=== PATIENT | female | born 1990 | race Hispanic/Latino ===

== ENCOUNTER 2017-06-05 02:54 | Emergency (ER) | payer BC ==
[2017-06-05] MEDS ORDERED: DEXAMETHASONE SOD PHOSPHATE 10MG/ML 1ML VIAL ONE (03:15)
[2017-06-05 03:38] LABS: RAPID GROUP A STREP NEGATIVE (NEGATIVE)
[2017-06-05] MEDS ORDERED: IBUPROFEN 800 MG TAB ONE (04:05)
== END 2017-06-05 04:21 | disposition home or self-care (01) ==
LOC: EDH 02:54
DX: B34.9 Viral infection, unspecified (principal); Z72.0 Tobacco use
CPT/HCPCS: 81025; 87804 ×2; 87880; 96372; 99284; J1100

== ENCOUNTER 2017-08-12 22:13 | Emergency (ER) | payer BC | END 2017-08-12 23:42 | disposition home or self-care (01) | LOC: EDH 22:13 | DX: J06.9 Acute upper respiratory infection, unspecified (principal); Z72.0 Tobacco use | CPT/HCPCS: 99281 ==

== ENCOUNTER 2017-11-01 22:36 | Emergency (ER) | payer BC ==
[2017-11-01] MEDS ORDERED: CEFTRIAXONE SODIUM 1 GM ONE (23:32)
== END 2017-11-01 23:56 | disposition home or self-care (01) ==
LOC: EDH 22:36
DX: H66.002 Acute suppurative otitis media without spontaneous rupture of ear drum, left ear (principal)
CPT/HCPCS: 81025; 96372; 99283; J0696

== ENCOUNTER 2019-10-28 22:07 | Inpatient (IN) | payer MEDICAID ==
[~2019-10-28] VITALS: Ht 157.5 cm; Wt 103.0 kg
[2019-10-28] MEDS: OXYTOCIN-LR 20 UNITS/1000 ML 1,000 ML IV SCH (11:55)
[2019-10-28] MEDS ORDERED: LACTATED RINGERS 1000ML 1,000 ML IV PRN (22:09)
[2019-10-28 22:57] LABS: APPEARANCE,URINE Clear (CLEAR); BILIRUBIN,URINE Negative (NEGATIVE); COLOR,URINE Yellow (YELLOW); GLUCOSE, URINE (UA) Negative (NEGATIVE); KETONES,URINE Negative (NEGATIVE); LEUKOCYTE ESTERASE ,URINE Trace (NEGATIVE); NITRATE,URINE Negative (NEGATIVE); OCCULT BLOOD,URINE Negative (NEGATIVE); PROTEIN,URINE Negative (NEGATIVE); UROBILINOGEN,URINE 0.2 mg/dL (0.2-1.0)
[2019-10-28 23:01] LABS: HEMATOCRIT 30.3 % (36-48); MEAN CORPUSCULAR VOLUME 76.7 fL (79-99); PLATELET COUNT (AUTO) 206 K/uL (130-400); RED BLOOD CELL COUNT(AUTO) 3.95 MIL/uL (4.00-5.50); RED CELL DISTRIBUTION WIDTH 16.5 % (11.0-15.5); WHITE BLOOD COUNT (AUTO) 7.7 K/uL (4.8-10.8)
[2019-10-28 23:22] LABS: BACTERIA,URINE Rare /HPF (None Seen); RBC,URINE None Seen /HPF (0-1); SQUAMOUS EPITHELIAL CELL,UR Few /HPF (0-2); WBC,URINE 0-1 /HPF (0-1)
[2019-10-29] MEDS ORDERED: OXYTOCIN 10 USP UNITS/ML 20 UNIT in LACTATED RINGERS 1000ML 1,000 ML IV SCH (04:00)
[2019-10-29] MEDS ORDERED: MEPERIDINE-PF 50 MG/ML SYG IVP SCH (07:45)
[2019-10-29] MEDS ORDERED: PROMETHAZINE HCL 25 MG/ML 1ML AMPULE IM SCH (07:45)
[2019-10-29] MEDS ORDERED: LIDOCAINE HCL 1% 20 ML VIAL ONE (10:44)
[2019-10-29] MEDS ORDERED: MISOPROSTOL 200 MCG TABLET ONE (11:13)
[2019-10-29] MEDS ORDERED: METHYLERGONOVINE MALEATE 0.2 MG/1 ML ML ONE (11:13)
[2019-10-29] MEDS ORDERED: MEASLES/MUMPS/RUBELLA VACCINE, LIVE 0.5 ML/VIAL SQ PRN (11:30)
[2019-10-29] MEDS ORDERED: DIPH,PERTUSS(ACELL),TET VAC/PF 0.5 ML VIAL IM PRN (11:30)
[2019-10-29] MEDS ORDERED: OXYTOCIN-LR 20 UNITS/1000 ML 1,000 ML IV SCH ×2 (11:30→12:45)
[2019-10-29] MEDS ORDERED: ACETAMINOPHEN 325 MG TAB PO PRN (11:30)
[2019-10-29] MEDS ORDERED: WITCH HAZEL 1 PAD TP PRN (11:30)
[2019-10-29] MEDS ORDERED: LANOLIN 30GM OINTMENT TP PRN (11:30)
[2019-10-29] MEDS ORDERED: BENZOCAINE/LANOLIN/ALOE VERA 60 ML AEROSOL TP PRN (11:30)
[2019-10-29] MEDS ORDERED: IBUPROFEN 600 MG TABLET PO PRN (11:30)
[2019-10-29] MEDS ORDERED: ACETAMINOPHEN-CODEINE 300/30MG TAB PO PRN (11:30)
[2019-10-29 13:23] VITALS: BP 141/63
[2019-10-29] MEDS ORDERED: PNV1TABL17 PO (14:03)
[2019-10-29 16:08] VITALS: BP 111/69
--- NOTE | 2019-10-29 16:20 | NUR ---
PERICARE DONE AT THIS TIME. SMALL TRICKLE NOTED ON MASSAGE. QBL= 188G
--- NOTE | 2019-10-29 17:34 | NUR ---
SPOKE WITH LEANDRO SOLOMON CNM TO INFORM OF QBL OF 188 WHEN DOING PERICARE AND SMALL TRICKLE WHEN MASSAGING FUNDUS. NEW ORDERS RECEIVED FOR METHERGINE 0.2 Q6H X4 DOSES. AYON CATHETER MAY BE D/C TONIGHT ONCE BLEEDING IN CONTROLLED.
[2019-10-29 19:56] VITALS: BP 102/63
[2019-10-29] MEDS: DOCUSATE SODIUM 100 MG CAP PO SCH (21:16)
[2019-10-29] MEDS: OXYTOCIN-LR 20 UNITS/1000 ML 1,000 ML IV SCH (22:15)
[2019-10-29 23:05] VITALS: BP 107/69
[2019-10-29 23:13] VITALS: BP 110/68
--- NOTE | 2019-10-30 01:00 | NUR ---
GABO BANSAL DC'D; PT'S LOCHIA REMAIN SCANT; INST TO CALL FOR ASSIST BEFORE GETTING OUT OF BED; VERBALIZED UNDERSTANDING. Addendum: 10/30/19 at 0421 by GRISELDA HORN RN RN Amended: Links added.
[2019-10-30 03:32] VITALS: BP 112/65
[2019-10-30 05:25] LABS: MEAN CORPUSCULAR HEMOGLOBIN 23.2 pg (27.0-33.0); MEAN CORPUSCULAR HGB CONC 29.6 g/dL (32.0-36.0); MEAN CORPUSCULAR VOLUME 78.3 fL (79-99); RED BLOOD CELL COUNT(AUTO) 3.32 MIL/uL (4.00-5.50); RED CELL DISTRIBUTION WIDTH 16.5 % (11.0-15.5); WHITE BLOOD COUNT (AUTO) 8.8 K/uL (4.8-10.8)
--- NOTE | 2019-10-30 06:09 | NUR ---
ORDER RECEIVED FROM LEANDRO SOLOMON [facility] FOR H&H OF 7.7 & 26.0
--- NOTE | 2019-10-30 07:05 | NUR ---
[facility] UNIT #1 STARTED.
--- NOTE | 2019-10-30 07:20 | NUR ---
REPORT GIVEN TO Mahi GALLEGOS RN.
[2019-10-30 08:13] LABS: HEPATITIS Bs ANTIGEN SCREEN P Negative (Negative)
[2019-10-30] MEDS: DOCUSATE SODIUM 100 MG CAP PO SCH (09:07)
[2019-10-30 09:15] VITALS: BP 129/65
--- NOTE | 2019-10-30 09:15 | NUR ---
1 UNIT of blood transfused, no reactions noted. Addendum: 10/30/19 at 0939 by JOAQUIN GALLEGOS RN Amended: Links added.
[2019-10-30] MEDS ORDERED: FERR325T22 PO (11:06)
[2019-10-30] MEDS ORDERED: DOCU-116 PO (11:07)
[2019-10-30 11:17] VITALS: BP 111/54
[2019-10-30 11:23] LABS: HEMATOCRIT 28.6 % (36-48); MEAN CORPUSCULAR HEMOGLOBIN 23.6 pg (27.0-33.0); MEAN CORPUSCULAR HGB CONC 30.1 g/dL (32.0-36.0); MEAN CORPUSCULAR VOLUME 78.4 fL (79-99); RED BLOOD CELL COUNT(AUTO) 3.65 MIL/uL (4.00-5.50); RED CELL DISTRIBUTION WIDTH 16.5 % (11.0-15.5); WHITE BLOOD COUNT (AUTO) 9.7 K/uL (4.8-10.8)
--- NOTE | 2019-10-30 12:00 | NUR ---
verbal and written discharge instructions given, informed of the follow up appointment. prescription given. informed to call the doctor for future concerns. pt voiced understanding to all things discussed. Addendum: 10/30/19 at 1213 by JOAQUIN GALLEGOS RN Amended: Links added.
--- NOTE | 2019-10-30 12:45 | NUR ---
pt is dismissed in stable condition, brought to private car via wheelchair. Addendum: 10/30/19 at 1252 by JOAQUIN GALLEGOS RN Amended: Links added.
== END 2019-10-30 12:45 | disposition home or self-care (01) | DRG 560 ==
LOC: LDH 22:07 → WSH 10-29 13:20
PROVIDERS: ADMIT Obstetrics & Gynecology; ATTEND Obstetrics & Gynecology
PROC: 0HQ9XZZ Repair Perineum Skin, External Approach (ICD-10-PCS; principal; 2019-10-29)
PROC: 10E0XZZ Delivery of Products of Conception, External Approach (ICD-10-PCS; 2019-10-29)
PROC: 10907ZC Drainage of Amniotic Fluid, Therapeutic from Products of Conception, Via Natural or Artificial Opening (ICD-10-PCS; 2019-10-29)
PROC: 30233N1 Transfusion of Nonautologous Red Blood Cells into Peripheral Vein, Percutaneous Approach (ICD-10-PCS; 2019-10-29)
PROC: 3E033VJ Introduction of Other Hormone into Peripheral Vein, Percutaneous Approach (ICD-10-PCS; 2019-10-29)
PROC: 3E0234Z Introduction of Serum, Toxoid and Vaccine into Muscle, Percutaneous Approach (ICD-10-PCS; 2019-10-29)
PROC: 3E0134Z Introduction of Serum, Toxoid and Vaccine into Subcutaneous Tissue, Percutaneous Approach (ICD-10-PCS; 2019-10-29)
DX: O69.2XX0 Labor and delivery complicated by other cord entanglement, with compression, not applicable or unspecified (principal); Z37.0 Single live birth; O62.2 Other uterine inertia; O70.0 First degree perineal laceration during delivery; Z23 Encounter for immunization; Z3A.36 36 weeks gestation of pregnancy
CPT/HCPCS: 36415; 36430; 81001; 85027; 86592; 86701; 86850; 86900; 86901; 86922; 87340; 87390; 90715; A4314; A4351; G0378; J2175; J2210; J2550; J2590; J7030; J7120; P9016

== ENCOUNTER 2019-12-04 04:50 | Emergency (ER) | payer MEDICAID ==
[~2019-12-04 04:50] MED LIST: DOCU-116 PO; FERR325T22 PO; PNV1TABL17 PO
[2019-12-04] MEDS ORDERED: ONDANSETRON HCL 4 MG/2 ML VIAL ONE (05:35)
[2019-12-04] MEDS ORDERED: SODIUM CHLORIDE 0.9% 1000ML 1,000 ML IV ONE (05:36)
[2019-12-04 05:42] LABS: BASOPHILS % (AUTO) 0.6 % (0.0-5.0); EOSINOPHILS % (AUTO) 1.7 % (0.0-8.0); HEMATOCRIT 31.7 % (36-48); LYMPHOCYTES % (AUTO) 35.3 % (21.0-51.0); MEAN CORPUSCULAR HEMOGLOBIN 23.3 pg (27.0-33.0); MEAN CORPUSCULAR HGB CONC 29.7 g/dL (32.0-36.0); MEAN CORPUSCULAR VOLUME 78.5 fL (79-99); NEUTROPHILS % (AUTO) 56.1 % (40.0-77.0); PLATELET COUNT (AUTO) 214 K/uL (130-400); RED BLOOD CELL COUNT(AUTO) 4.04 MIL/uL (4.00-5.50); RED CELL DISTRIBUTION WIDTH 17.4 % (11.0-15.5)
[2019-12-04 05:43] LABS: BILIRUBIN,URINE SMALL (NEGATIVE); GLUCOSE, URINE (UA) NEGATIVE (NEGATIVE); KETONES,URINE NEGATIVE (NEGATIVE); LEUKOCYTE ESTERASE ,URINE NEGATIVE (NEGATIVE); NITRATE,URINE NEGATIVE (NEGATIVE); OCCULT BLOOD,URINE LARGE (NEGATIVE); PH,URINE 5.5 (5.0-8.0); PROTEIN,URINE 30 mg/dL (NEGATIVE)
[2019-12-04 05:50] LABS: HCG,QUAL RESULT NEGATIVE (NEGATIVE)
[2019-12-04 05:51] LABS: APPEARANCE,URINE CLOUDY (CLEAR); COLOR,URINE ORANGE (YELLOW)
[2019-12-04 06:01] LABS: BACTERIA,URINE Rare /HPF (None Seen); WBC,URINE 0-1 /HPF (0-1)
[2019-12-04 06:09] LABS: CREATININE 0.6 mg/dL (0.5-1.5); POTASSIUM 3.4 mmol/L (3.5-5.1)
[2019-12-04 06:09] LABS: AMPHET/METH SCREEN,URINE NEGATIVE (NEGATIVE); BARBITURATE SCREEN, URINE NEGATIVE (NEGATIVE); BENZODIAZEPINES SCREEN,URINE NEGATIVE (NEGATIVE); CANNABINOID SCREEN,URINE NEGATIVE (NEGATIVE); COCAINE SCREEN,URINE NEGATIVE (NEGATIVE); OPIATE SCREEN,URINE NEGATIVE (NEGATIVE); PHENCYCLIDINE SCREEN,URINE NEGATIVE (NEGATIVE)
[2019-12-04 06:10] LABS: RBC,URINE TNTC /HPF (0-1)
[2019-12-04 06:12] LABS: YEAST,URINE BUDDING None Seen /HPF (None Seen)
[2019-12-04 06:14] LABS: INR 0.91 (0.85-1.15); PARTIAL THROMBOPLASTIN TIME 26.4 SEC (26.3-35.5); PROTHROMBIN TIME 9.9 SEC (9.6-11.6)
[2019-12-04 06:19] LABS: ALBUMIN 3.6 g/dL (3.5-5.0); BILIRUBIN,DIRECT 0.1 mg/dL (0.0-0.3); BILIRUBIN,TOTAL 0.5 mg/dL (0.2-1.0); TOTAL PROTEIN, SERUM 7.4 g/dL (6.0-8.3)
== END 2019-12-04 07:13 | disposition home or self-care (01) ==
LOC: EDH 04:50
DX: N93.8 Other specified abnormal uterine and vaginal bleeding (principal)
CPT/HCPCS: 36415; 76856; 80048; 80076; 80305; 81001; 81025; 82550; 84702; 85025; 85610; 85730; 99284; J7030; J2405

== ENCOUNTER 2020-01-11 00:51 | Emergency (ER) | payer MEDICAID ==
[2020-01-11] MEDS ORDERED: PANTOPRAZOLE 40 MG/VIAL IVP ONE (00:52)
[2020-01-11 01:19] LABS: APPEARANCE,URINE Clear (CLEAR); BILIRUBIN,URINE Negative (NEGATIVE); COLOR,URINE Yellow (YELLOW); GLUCOSE, URINE (UA) Negative (NEGATIVE); KETONES,URINE Negative (NEGATIVE); LEUKOCYTE ESTERASE ,URINE Trace (NEGATIVE); NITRATE,URINE Negative (NEGATIVE); OCCULT BLOOD,URINE Negative (NEGATIVE); PROTEIN,URINE Negative (NEGATIVE); UROBILINOGEN,URINE 0.2 mg/dL (0.2-1.0)
[2020-01-11 01:20] LABS: HCG,QUAL RESULT NEGATIVE (NEGATIVE)
[2020-01-11 01:29] LABS: BACTERIA,URINE None Seen /HPF (None Seen); RBC,URINE None Seen /HPF (0-1); SQUAMOUS EPITHELIAL CELL,UR Few /HPF (0-2)
[2020-01-11 01:35] LABS: BASOPHILS % (AUTO) 0.6 % (0.0-5.0); EOSINOPHILS % (AUTO) 1.4 % (0.0-8.0); HEMATOCRIT 33.9 % (36-48); LYMPHOCYTES % (AUTO) 28.2 % (21.0-51.0); MEAN CORPUSCULAR HEMOGLOBIN 22.9 pg (27.0-33.0); MEAN CORPUSCULAR HGB CONC 29.8 g/dL (32.0-36.0); MEAN CORPUSCULAR VOLUME 76.9 fL (79-99); MONOCYTES % (AUTO) 6.4 % (3.0-13.0); NEUTROPHILS % (AUTO) 63.1 % (40.0-77.0); PLATELET COUNT (AUTO) 284 K/uL (130-400); RED BLOOD CELL COUNT(AUTO) 4.41 MIL/uL (4.00-5.50); RED CELL DISTRIBUTION WIDTH 16.6 % (11.0-15.5); WHITE BLOOD COUNT (AUTO) 7.1 K/uL (4.8-10.8)
[2020-01-11 01:40] LABS: CREATININE 0.6 mg/dL (0.5-1.5); POTASSIUM 3.5 mmol/L (3.5-5.1)
[2020-01-11 01:46] LABS: INR 0.92 (0.85-1.15); PARTIAL THROMBOPLASTIN TIME 27.8 SEC (26.3-35.5)
[2020-01-11 01:48] LABS: ALBUMIN 3.8 g/dL (3.5-5.0); BILIRUBIN,TOTAL 0.6 mg/dL (0.2-1.0)
[2020-01-11] MEDS ORDERED: SODIUM CHLORIDE 0.9% 1000ML 1,000 ML IV ONE (01:59)
[2020-01-11] MEDS ORDERED: KETOROLAC TROMETHAMINE 30MG/ML ONE (02:02)
[2020-01-11] MEDS ORDERED: ORPHENADRINE CITRATE 30 MG/ML ML ONE (02:02)
[2020-01-11] MEDS ORDERED: FAMOTIDINE/PF 20 MG/2 ML VIAL IV ONE (02:03)
== END 2020-01-11 03:16 | disposition home or self-care (01) ==
LOC: EDH 00:51
DX: K29.70 Gastritis, unspecified, without bleeding (principal); M54.6 Pain in thoracic spine; M79.18 Myalgia, other site
CPT/HCPCS: 36415; 80053; 81001; 81025; 83690; 85025; 85610; 85730; 96361; 96374; 96375; 99284; C9113; J1885; J2360; J3490; J7030

== ENCOUNTER 2020-11-13 18:30 | Emergency (ER) | payer MEDICAID ==
[~2020-11-13] VITALS: Ht 157.5 cm; Wt 99.8 kg
[2020-11-13 18:37] VITALS: BP 119/71
[2020-11-13] MEDS ORDERED: D-ME1POW16 PO (18:52)
[2020-11-13] MEDS ORDERED: AMOX-429 PO (18:52)
== END 2020-11-13 19:00 | disposition home or self-care (01) ==
LOC: EDH 18:30
DX: J32.1 Chronic frontal sinusitis (principal); E66.9 Obesity, unspecified; Z68.41 Body mass index [BMI] 40.0-44.9, adult; Z79.899 Other long term (current) drug therapy

== ENCOUNTER 2022-10-26 09:52 | Emergency (ER) | payer MEDICAID ==
[~2022-10-26] VITALS: Ht 157.5 cm; Wt 104.3 kg
[~2022-10-26 09:52] MED LIST changes: +AMOX-429 PO; +D-ME1POW16 PO
[2022-10-26 10:39] LABS: APPEARANCE,URINE CLEAR (CLEAR); BILIRUBIN,URINE NEGATIVE (NEGATIVE); COLOR,URINE COLORLESS (YELLOW); GLUCOSE, URINE (UA) NEGATIVE (NEGATIVE); KETONES,URINE NEGATIVE (NEGATIVE); LEUKOCYTE ESTERASE ,URINE NEGATIVE Leu/uL (NEGATIVE); NITRATE,URINE NEGATIVE (NEGATIVE); OCCULT BLOOD,URINE LARGE (NEGATIVE); PH,URINE 6.5 (5.0-8.0); PROTEIN,URINE 70 mg/dL (NEGATIVE); UROBILINOGEN,URINE 0.2 mg/dL (0.2-1.0)
[2022-10-26 10:46] LABS: BACTERIA,URINE RARE /HPF (None Seen); RBC,URINE TNTC /HPF (0-1); SQUAMOUS EPITHELIAL CELL,UR RARE /HPF (0-2)
[2022-10-26 10:59] LABS: BASOPHILS % (AUTO) 0.5 % (0.0-5.0); EOSINOPHILS % (AUTO) 1.1 % (0.0-8.0); HEMATOCRIT 30.5 % (36-48); LYMPHOCYTES % (AUTO) 24.9 % (21.0-51.0); MEAN CORPUSCULAR HEMOGLOBIN 20.2 pg (27.0-33.0); MEAN CORPUSCULAR HGB CONC 28.9 g/dL (32.0-36.0); MONOCYTES % (AUTO) 5.2 % (3.0-13.0); NEUTROPHILS % (AUTO) 67.9 % (40.0-77.0); PLATELET COUNT (AUTO) 198 K/uL (130-400); RED BLOOD CELL COUNT(AUTO) 4.36 MIL/uL (4.00-5.50); RED CELL DISTRIBUTION WIDTH 18.6 % (11.0-15.5); WHITE BLOOD COUNT (AUTO) 5.6 K/uL (4.8-10.8)
[2022-10-26] MEDS ORDERED: LACTATED RINGERS 1000ML 1,000 ML IV ONE (11:00)
[2022-10-26 11:08] LABS: CREATININE 0.5 mg/dL (0.5-1.5); POTASSIUM 3.5 mmol/L (3.5-5.1)
[2022-10-26 11:34] LABS: ALBUMIN 3.6 g/dL (3.5-5.0); TOTAL PROTEIN, SERUM 7.4 g/dL (6.0-8.3)
[2022-10-26 13:56] VITALS: BP 113/55
== END 2022-10-26 13:57 | disposition home or self-care (01) ==
LOC: EDH 09:52
DX: O20.0 Threatened abortion (principal); Z3A.01 Less than 8 weeks gestation of pregnancy; Z79.899 Other long term (current) drug therapy; Z90.89 Acquired absence of other organs; Z98.890 Other specified postprocedural states
CPT/HCPCS: 99284; 96360; 76801; 96361; 80053; 84702; 85025; 86900; 86901; 87088; 81001; 36415; J7120